=== PATIENT | female | born 1990 | race Two or more races ===

== ENCOUNTER 2018-08-27 22:44 | Emergency (ER) | payer OTHER ==
[~2018-08-27] VITALS: Ht 149.9 cm; Wt 75.3 kg
[~2018-08-27 22:44] MED LIST: DOLOGESIC CAPSU1 CAP PO; PRENATAL TABLE1 EAC1 PO; TUSICOF LIQUID120 ML PO
[2018-08-28] MEDS ORDERED: KETO10TA2 PO (01:09)
== END 2018-08-28 01:40 | disposition home or self-care (01) ==
LOC: ER 22:44
DX: D17.1 Benign lipomatous neoplasm of skin and subcutaneous tissue of trunk (principal)

== ENCOUNTER 2021-07-14 22:42 | Emergency (ER) | payer OTHER ==
[~2021-07-14] VITALS: Ht 149.9 cm; Wt 83.0 kg
[~2021-07-14 22:42] MED LIST changes: +KETO10TA2 PO
== END 2021-07-15 00:06 | disposition home or self-care (01) ==
LOC: ER 22:42
DX: J03.80 Acute tonsillitis due to other specified organisms (principal); B96.89 Other specified bacterial agents as the cause of diseases classified elsewhere